=== PATIENT | male | born 1970 | race Caucasian/White ===

== ENCOUNTER → 2020-12-25 | Outpatient (CLI) | payer OTHER ==
[~2020-12-25] MED LIST: FLUO10TA PO
== END | disposition home or self-care (01) ==
LOC: STAR 07:08
PROVIDERS: ATTEND Surgery
DX: Z01.812 Encounter for preprocedural laboratory examination (principal); Z20.822 Contact with and (suspected) exposure to COVID-19
CPT/HCPCS: 36415; 86800; U0003; U0005; 84432

== ENCOUNTER 2020-12-30 07:02 | Inpatient (IN) | payer OTHER ==
[~2020-12-30] VITALS: Ht 182.9 cm; Wt 107.9 kg
[2020-12-30] MEDS ORDERED: CHLORHEXIDINE 15 ML UDC ONE (07:43)
[2020-12-30] MEDS ORDERED: LACTATED RINGERS 1,000 ML IV SCH (08:00)
[2020-12-30] MEDS ORDERED: CHLORHEXIDINE 15 ML UDC PO ONE (08:00)
[2020-12-30] MEDS ORDERED: MIDAZOLAM 1 MG/ML, 2ML ONE (09:38)
[2020-12-30] MEDS ORDERED: FENTANYL PF 250 MCG/5ML ONE (09:39)
[2020-12-30] MEDS ORDERED: ACETAMINOPHEN 325 MG TABLET PO PRN (10:00)
[2020-12-30] MEDS ORDERED: LABETALOL 5MG/ML, 20ML IV PRN (10:00)
[2020-12-30] MEDS ORDERED: ONDANSETRON 2MG/ML, 2ML IVPush PRN (10:00)
[2020-12-30] MEDS ORDERED: hydrALAzine 20 MG/ML, 1ML IV PRN (10:00)
[2020-12-30] MEDS ORDERED: MEPERIDINE/PF 25MG/0.5ML IVPush PRN (10:00)
[2020-12-30] MEDS ORDERED: OXYcodone 5 MG/5 ML ORAL.SOL UDC PO PRN (10:00)
[2020-12-30] MEDS ORDERED: PROMETHAZINE 12.5 MG SUPP PR PRN (10:00)
[2020-12-30] MEDS ORDERED: HYDROmorphone 1 MG/ML, 1ML INJ IVPush PRN (10:00)
[2020-12-30] MEDS ORDERED: ONDANSETRON 2MG/ML, 2ML ONE (10:05)
[2020-12-30] MEDS ORDERED: EPHEDRINE 50 MG/ML, 1ML ONE (10:05)
[2020-12-30] MEDS ORDERED: LIDOCAINE 1%, 20ML ONE (10:05)
[2020-12-30] MEDS ORDERED: CEFAZOLIN PMX 2GM/50ML IVPB ONE (10:05)
[2020-12-30] MEDS ORDERED: SUCCINYLCHOLINE 20 MG/ML, 10ML ONE (10:05)
[2020-12-30] MEDS ORDERED: PROPOFOL 10 MG/ML, 20ML ONE (10:05)
[2020-12-30] MEDS ORDERED: DEXAMETHASONE 4 MG/ML, 5ML ONE (10:05)
[2020-12-30] MEDS ORDERED: FENTANYL PF 100 MCG/2ML ONE ×2 (10:26→11:59)
[2020-12-30] MEDS ORDERED: OXYcodone 5 MG/5 ML ORAL.SOL UDC ONE (11:51)
[2020-12-30] MEDS ORDERED: DIAZEPAM 5 MG/ML, 2ML ONE (11:51)
[2020-12-30] MEDS: DIAZEPAM 5 MG/ML, 2ML IVPush PRN ×2 (11:58→12:15)
[2020-12-30] MEDS ORDERED: LORazepam 2 MG/ML, 1ML IVPush PRN (12:00)
[2020-12-30] MEDS: FENTANYL PF 100 MCG/2ML IV PRN ×2 (12:02→12:08)
[2020-12-30] MEDS ORDERED: HYDROcodone/APAP 5/325 TABLET PO PRN (13:30)
[2020-12-30] MEDS ORDERED: morphine SULFATE 10 MG/ML, 1ML IV PRN (13:30)
[2020-12-30] MEDS: ONDANSETRON 2MG/ML, 2ML IV PRN (15:03)
[2020-12-30] MEDS ORDERED: PROMETHAZINE 25 MG/ML, 1ML IM PRN (15:30)
[2020-12-30 18:25] VITALS: BP 105/63
[2020-12-30 18:41] LABS: CALCIUM 8.8 mg/dL (8.5-10.1)
[2020-12-30] MEDS: LACTATED RINGERS 1,000 ML IV SCH (20:45)
[2020-12-30] MEDS ORDERED: FLUOXETINE 10 MG CAP PO SCH (21:00)
[2020-12-31 00:05] VITALS: BP 142/73
[2020-12-31 00:40] LABS: ALBUMIN 3.8 g/dL (3.4-5.0); CALCIUM 8.3 mg/dL (8.5-10.1)
[2020-12-31] MEDS: ONDANSETRON 2MG/ML, 2ML IV PRN (02:32)
[2020-12-31 04:16] VITALS: BP 115/78
[2020-12-31 06:06] LABS: ALBUMIN 3.7 g/dL (3.4-5.0); CALCIUM 7.6 mg/dL (8.5-10.1)
[2020-12-31 06:55] VITALS: BP 115/72
[2020-12-31] MEDS ORDERED: HYDR-2214 PO (07:58)
[2020-12-31] MEDS ORDERED: LEVO137T2 PO (07:58)
[2020-12-31] MEDS ORDERED: ONDA4TAB7 PO (09:48)
[2020-12-31] MEDS ORDERED: CALC200T3 PO (09:48)
[2020-12-31] MEDS: LACTATED RINGERS 1,000 ML IV SCH (10:27)
[2020-12-31 10:49] VITALS: BP 114/71
== END 2020-12-31 11:15 | disposition home or self-care (01) | DRG 627 ==
LOC: OUT 07:02 → 4NE 12:49 → OUT 14:22 → DCLOUNGE 12-31 11:00
PROVIDERS: ADMIT Surgery; ATTEND Surgery
PROC: 0GTK0ZZ Resection of Thyroid Gland, Open Approach (ICD-10-PCS; principal; 2020-12-30 09:30)
DX: E07.9 Disorder of thyroid, unspecified (principal); E04.2 Nontoxic multinodular goiter; F41.9 Anxiety disorder, unspecified; Z90.81 Acquired absence of spleen
CPT/HCPCS: 36415; J3490; 82040; 82310; 88307; G0378; J0690; J1100; J2250; J2405; J2704; J3010; J3360; J0330; J2270; J7120